=== PATIENT | male | born 1960 ===

== ENCOUNTER 2024-02-27 09:33 | Outpatient (CLI) | payer BC ==
[2024-02-27] MEDS ORDERED: Magnevist 469MG/ML 20 ML VIAL ONE (11:58)
== END 2024-02-27 09:34 | disposition home or self-care (01) ==
LOC: CSHMRI 09:33
PROVIDERS: ATTEND Urology
DX: C61 Malignant neoplasm of prostate (principal); R91.1 Solitary pulmonary nodule
CPT/HCPCS: 36415; 72197; 82565